=== PATIENT | female | born 1980 | race Two or more races ===

== ENCOUNTER 2023-12-13 17:57 | Emergency (ER) | payer MEDICAID ==
[~2023-12-13] VITALS: Ht 157.5 cm; Wt 78.0 kg
[~2023-12-13 17:57] MED LIST: CEPH500C PO; CLON-857 PO; DOCU-94 PO; FER325T PO
[2023-12-13 18:34] VITALS: PULSE 73; RESP 18; O2SAT 98
[2023-12-13 19:28] LABS: Basophils # (auto) 0.1 10 ^3/uL (0-0.2); Eosinophils # (auto) 0.1 10 ^3/uL (0-0.8); Eosinophils % (auto) 1.2 % (0.0-7.0); Lymphocytes # (auto) 2.4 10 ^3/uL (0.4-5.4); Neutrophils # (auto) 4.3 10 ^3/uL (1.6-8.6); White Blood Cell 7.6 10^3/uL (4.4-10.8)
[2023-12-13 19:29] LABS: Basophils % (auto) 1.2 % (0.0-2.0); Hematocrit 38.1 % (36.0-46.0); Hemoglobin 12.6 g/dL (12.2-16.2); Lymphocytes % (auto) 31.5 % (10.0-50.0); Mean Corpuscular Hemoglobin 25.7 pg (28.0-32.0); Mean Corpuscular Hgb Conc. 33.1 g/dL (32.0-36.0); Mean Corpuscular Volume 77.7 fL (80.0-100.0); Monocytes # (auto) 0.8 10 ^3/uL (0-1.3); Monocytes % (auto) 9.9 % (0.0-12.0); Neutrophils % (auto) 56.2 % (37.0-80.0); Nucleated Red Blood Cells % 0.1 %
[2023-12-13 19:30] LABS: Red Cell Distribution Width 26.5 % (11.8-14.3)
[2023-12-13 19:46] LABS: Anion Gap 8 (5-15); Carbon Dioxide 24 mmol/L (20-30); Chloride 103 mmol/L (98-107); Potassium 4.3 mmol/L (3.5-5.1); Sodium 135 mmol/L (136-145)
[2023-12-13 19:47] LABS: Calcium 9.5 mg/dL (8.5-10.1)
[2023-12-13 19:52] LABS: BUN/Creatinine Ratio 15.3 (10.0-20.0); Blood Urea Nitrogen 9 mg/dL (9-23); Glucose 87 mg/dL (74-106)
[2023-12-13 20:12] LABS: Anisocytosis Slight; Ovalocytes FEW; Platelet Estimate Adequate
[2023-12-13] MEDS: SODIUM CHLORIDE 0.9% 1,000 ML IV ONE (20:12)
[2023-12-13 20:41] VITALS: O2SAT 98
[2023-12-13 20:44] LABS: Urine Bacteria None Seen /hpf (None Seen)
[2023-12-13 21:00] VITALS: BP 128/58; PULSE 72; RESP 100; TEMP 97.9; O2SAT 27
[2023-12-13 21:10] LABS: Urine Blood Negative /uL (Negative); Urine Clarity Clear (Clear); Urine Color Yellow (Yellow); Urine Protein, UAD Negative (Negative); Urine Specific Gravity 1.015 (1.001-1.035); Urine Urobilinogen Normal (Negative); Urine WBC 1 /hpf (0 - 5)
== END 2023-12-13 21:45 | disposition home or self-care (01) ==
LOC: ER 17:57
DX: R53.1 Weakness (principal); I10 Essential (primary) hypertension; Z86.2 Personal history of diseases of the blood and blood-forming organs and certain disorders involving the immune mechanism; Z79.899 Other long term (current) drug therapy
CPT/HCPCS: 36415; 80048; 81001; 85025; 96360; 99285; J7030